=== PATIENT | female | born 1995 | race Caucasian/White ===

== ENCOUNTER 2024-09-11 00:03 | Inpatient (IN) | payer BC ==
[2024-09-11] MEDS ORDERED: Methylergonovine 0.2 MG/1 ML Amp IM PRN (00:06)
[2024-09-11] MEDS ORDERED: Butorphanol 2 MG/ML SDV IVPUSH PRN (00:06)
[2024-09-11] MEDS ORDERED: Water For Irrigation,Sterile 1,000 ML Container IRR PRN (00:06)
[2024-09-11] MEDS ORDERED: Misoprostol 200 MCG Tab PO PRN (00:06)
[2024-09-11] MEDS ORDERED: Sodium Chloride 0.9% 20 ML SDV IV PRN (00:06)
[2024-09-11] MEDS ORDERED: Sodium Chloride 0.9% 2.5 ML Syringe FLUSH PRN (00:06)
[2024-09-11] MEDS ORDERED: Lidocaine 1% 50 ML MDV INJECT PRN (00:06)
[2024-09-11] MEDS ORDERED: Terbutaline 1 MG/ML SDV SUBCUT PRN (00:06)
[2024-09-11] MEDS ORDERED: Carboprost Tromethamine 250 MCG/1 mL Vial IM PRN (00:06)
[2024-09-11] MEDS ORDERED: Sodium Chloride 0.9% 10 ML Syringe FLUSH PRN (00:06)
[2024-09-11] MEDS ORDERED: Ondansetron 4 MG/2 ML SDV IVPUSH PRN (00:06)
[2024-09-11] MEDS ORDERED: Oxytocin/0.9 % Sodium Chloride 30 UNIT/500 ML BAG IV SCH (00:15)
[2024-09-11] MEDS ORDERED: Lactated Ringers 1,000 ML IV SCH (00:15)
[2024-09-11] MEDS: Misoprostol 25 MCG (1/4 of 100 MCG) Tab VAG PRN (00:55)
[2024-09-11] MEDS: Misoprostol 25 MCG (1/4 of 100 MCG) Tab PO PRN (00:56)
[2024-09-11 01:01] LABS: HEMATOCRIT 35.1 % (37.0-47.0); MEAN CORPUSCULAR HEMOGLOBIN 29.6 pg (28.0-32.0); MEAN CORPUSCULAR HGB CONC 34.2 g/dL (32.0-36.0); MEAN CORPUSCULAR VOLUME 86.7 fL (83.0-99.0); MEAN PLATELET VOLUME 9.6 fL (9.4-12.3); PLATELET COUNT,PLT 203 K/uL (150-400); RED BLOOD CELL COUNT 4.05 M/uL (4.10-5.30); WHITE BLOOD CELL COUNT,WBC 9.69 K/uL (3.9-11.3)
[2024-09-11] MEDS: Oxytocin/0.9 % Sodium Chloride 30 UNIT/500 ML BAG IV SCH (07:08)
[2024-09-11] MEDS ORDERED: Ibuprofen 800 MG Tab PO PRN (07:30)
[2024-09-11] MEDS ORDERED: Lanolin 100% Cream 7 GM Tube TOP PRN (07:30)
[2024-09-11] MEDS ORDERED: Docusate Sodium 100 MG Cap PO PRN (07:30)
[2024-09-11] MEDS: Acetaminophen 500 MG Tab PO PRN (08:14)
[2024-09-11] MEDS: Witch Hazel Medicated Pads 40/Jar TOP PRN (08:14)
[2024-09-11] MEDS: Benzocaine/Menthol 20%-0.5% Spray 78 GM Cannister TOP PRN (08:15)
[2024-09-12 05:46] LABS: HEMATOCRIT 33.3 % (37.0-47.0); HEMOGLOBIN 11.1 g/dL (12.0-16.0)
== END 2024-09-12 13:55 | disposition home or self-care (01) | DRG 560 ==
LOC: MW.OBCHECK 00:03 → MW.OB 00:04 → OBSVTOIN 07:05 → MW.OB 09:50
PROVIDERS: ADMIT Obstetrics & Gynecology Obstetrics; ATTEND Obstetrics & Gynecology Obstetrics
PROC: 10E0XZZ Delivery of Products of Conception, External Approach (ICD-10-PCS; principal; 2024-09-11)
PROC: 3E0P7VZ Introduction of Hormone into Female Reproductive, Via Natural or Artificial Opening (ICD-10-PCS; 2024-09-11)
DX: O99.344 Other mental disorders complicating childbirth (principal); Z37.0 Single live birth; F31.9 Bipolar disorder, unspecified; Z3A.40 40 weeks gestation of pregnancy; Z88.8 Allergy status to other drugs, medicaments and biological substances; Z87.891 Personal history of nicotine dependence
CPT/HCPCS: 36415; 59025; 59409; 85014; 85018; 85027; 86592; 86850; 86900; 86901; A9270-GY; J2590